=== PATIENT | male | born 1975 | race African-American/Black ===

== ENCOUNTER 2017-01-28 00:56 | Inpatient (IN) ==
[2017-01-28] MEDS ORDERED: NS 1,000 ML ONE (01:07)
--- NOTE | 2017-01-28 01:17 | PROVIDER DOCUMENTATION ---
HPI-Abdominal Pain/GI Problem - General Source: patient, EMS, language interpreter Unable to obtain history due to:: other (hearing impaired;instructional design technologist/friend at bedside) - History of Present Illness-ABD Nature of Presenting Problems: Pt is a 41 yom who presents to ER via EMS with CC of black/tarry diarrhea today and coffee ground hematemesis. Pt reports that he has felt weak/sick for the past several days, but felt increased dizzy and weak tonight. Pt went to use the bathroom when he sat on the toilet, passed stool, and passed out. Pt was discovered by his , recovered, and called EMS. EMS reports pt's B/P was 104/ 74 at midnight. Pt has hx of peptic ulcers. Abdominal Pain Onset Location: reports: epigastric Pain Radiation: reports: no radiation Quality of Pain: reports: aching, cramping Severity in ED: reports: severe Onset/Duration: reports: just prior to arrival Timing: reports: still present Activities at Onset: reports: light activity Associated Symptoms: reports: diarrhea (black/tarry), dizziness, fatigue, loss of appetite, nausea, syncope, vomiting (coffee grounds), weakness, trouble walking. denies: anxiety, arm pain, back/neck pain, chest pain, constipation, cough, diaphoresis, EENT symptoms, fever/chills, genitourinary problems, headaches, heartburn, joint pain, muscle aches, sinus congestion/drainage, shortness of breath, sensory/motor loss Last BM: this evening Dark Stools Present?: reports: black, tarry Rectal Pain: reports: other (rectal pain on exam) Emesis Description: reports: coffee grounds - General Stated Complaint: SYNCOPE, VOMITING BLOOD Time Seen by Provider: 01/28/17 00:56 Allergies/Adverse Reactions: Patient Allergies Allergy/AdvReac Type Severity Reaction Status Date / Time No Known Allergies Allergy Verified 09/10/15 08:59 Home Medications: Home Medication List Medication Instructions Recorded Confirmed Last Taken Type No Home Medications 09/10/15 09/10/15 Unknown History Review of Systems - Adult - REVIEW OF SYSTEMS - ADULT Constitutional: reports: tamara. denies: chills, fever, night sweats, weight gain, weight loss Eyes: reports: no symptoms reported Ears, Nose, Mouth & Throat: reports: no symptoms reported Cardiovascular: reports: syncope. denies: chest pain, edema, heart murmur, irregular heart rate, orthopnea, palpitations, poor circulation, PND Respiratory: reports: no symptoms reported Gastrointestinal: reports: abdominal pain, hematemesis, diarrhea, nausea, vomiting. denies: constipation, difficulty swallowing, frequent heartburn, poor appetite, rectal bleeding Genitourinary: reports: no symptoms reported Musculoskeletal: reports: no symptoms reported Integumentary: reports: no symptoms reported Neurological: reports: syncope. denies: ataxia, dizziness/vertigo, headache/ migraines, loss of balance, numbness, paresthesia, seizure, slurred speech, tremors Psychiatric: reports: no symptoms reported Endocrine: reports: no symptoms reported Hematologic/Lymphatic: reports: no symptoms reported Allergic/Immunologic: reports: no symptoms reported All Other Systems: Reviewed and Negative Past History - Adult - PAST MEDICAL HISTORY-ADULT Review of Records: reports: Nursing Assessment Review, Medications Reviewed Additional History: DEAF - IMMUNIZATION STATUS Childhood Immunizations: See Nurse Assessment Flu Vaccine: See Nurse Assessment Physical Exam-General - PHYSICAL EXAM-ADULT Initial Vital Signs Reviewed: Yes - CONSTITUTIONAL General Appearance: appears well, alert, moderate distress. negative: no apparent distress, mild distress, severe distress, cachetic, obese, thin, anxious, lethargic, slow to respond, obtunded, combative - NECK Neck: non-tender, full range of motion, supple, normal inspection. negative: C- spine tenderness, limited range of motion, lymphadenopathy - RESPIRATORY Respiratory: chest non-tender, lungs clear, normal breath sounds, no pleuratic chest pain, no respiratory distress, no accessory muscle use. negative: respiratory distress, decreased breath sounds, accessory muscle use, rales, wheezing - CARDIOVASCULAR Cardiovascular: normal peripheral pulses, regular rate, rhythm. negative: bradycardia, tachycardia, irregularly irregular - CHEST (BREASTS) Chest/Breast: no masses/lumps, no tenderness. negative: tenderness - GASTROINTESTINAL (ABDOMEN) Abdominal Exam: normal bowel sounds, soft, distended, tenderness (epigastric). negative: non tender - GENITOURINARY Rectal Exam: black stool, tenderness - MUSCULOSKELETAL Extremity: normal range of motion, non-tender, normal gait. negative: deformity , erythema, inflammation, pedal edema, slow capillary refill, swelling, tenderness - NEUROLOGIC Neurologic: grossly normal, no motor/sensory deficits. negative: focal weakness , motor weakness, sensory deficit - PSYCHIATRIC Psych/Mental Status: normal mood/affect, normal thought content, normal thought process, oriented x 3 Progress - PLAN OF CARE/RESULTS Progress/Plan/Lab Results: Vital Signs - 24 hr 01/28/17 01/28/17 01/28/17 00:57 02:06 02:09 Temperature 98.7 F Pulse Rate 104 H 75 Pulse Rate [ 86 Sitting] Pulse Rate [ 102 H Standing] Pulse Rate [ 80 Supine] Respiratory 18 16 Rate Blood Pressure 107/69 114/70 Blood Pressure 117/74 [Sitting] Blood Pressure 114/70 [Standing] Blood Pressure 111/76 [Supine] O2 Sat by Pulse 99 100 Oximetry Orders Category Date Time Status Orthostatic Vital Signs NOW Care 01/28/17 01:20 Active Saline Loc DIRECTED Care 01/28/17 01:20 Active Saline Loc DIRECTED Care 01/28/17 01:20 Active Vital Signs Order Q15M Care 01/28/17 01:[address] ABD/PELVIS W/ IV CONT ONLY [CT] Stat Exams 01/28/17 01:20 Ordered CBC WITH ELECTRONIC DIFF [HEME] Stat Lab 01/28/17 01:26 Completed COMPREHENSIVE METABOLIC PANEL [CHEM] Stat Lab 01/28/17 01:26 Received OCCULT BLOOD NON-FECES Stat Lab 01/28/17 01:20 Uncollected OCCULT BLOOD SCREENING [STOOL] Stat Lab 01/28/17 01:26 Completed PROTIME WITH INR [COAG] Stat Lab 01/28/17 01:26 Completed PTT [COAG] Stat Lab 01/28/17 01:26 Completed TYPE & SCREEN [BBK] Stat Lab 01/28/17 01:26 Received 0.9% Sodium Chloride Inj [Ns] 1,000 ml Med 01/28/17 01:07 Discontinued .ROUTE As Directed 0.9% Sodium Chloride Inj [Ns] 1,000 ml Med 01/28/17 01:21 Active IV 999 mls/hr Ondansetron [Zofran] Med 01/28/17 01:21 Discontinued 4 mg IV NOW ONE Pantoprazole [Protonix] 80 mg Med 01/28/17 01:21 Discontinued 0.9% Sodium Chloride Inj [Ns] 80 ml IV NOW EKG [EKG] Stat Ther 01/28/17 01:20 Ordered Laboratory Tests 01/28/17 01/28/17 01:26 01:26 WBC 9.58 RBC 4.21 L Hgb 9.5 L Hct 29.1 L MCV 69.1 L MCH 22.6 L MCHC 32.6 L RDW Std Deviation 15.4 H Plt Count 287 MPV 10.0 Immature Gran % (Auto) 0.2 Neut % (Auto) 75.2 Lymph % (Auto) 16.1 L [place] % (Auto) 7.8 Eos % (Auto) 0.6 Baso % (Auto) 0.1 Immature Gran # (Auto) 0.02 Neut # (Auto) 7.20 H Lymph # (Auto) 1.54 [place] # (Auto) 0.75 H Eos # (Auto) 0.06 Baso # (Auto) 0.01 PT 12.0 H INR 1.13 PTT (Actin FS) 23.8 - EKG 1 Time of EKG reading by physician:: 02:27 EKG Read and Signed by:: Prakash King EKG Interpretation (*Must complete 3 of following elements*): Normal Rate: 75 Rhythm: NSR with sinus arrhythmia - CONSULTS/PCP/HOSPITALIST Notification #1 *Consult/PCP/Hospitalist*: Dr. Looney (Hospitalist) Time Discussed: 02:08 Consult Disposition: other (Dr. Looney was made aware of pt's presence in the ER and that he has upper GI bleed, but is waiting for a consult with GI bleed.) #2 Consult: Dr. Gross (GI) Time Discussed: 02:12 Consult Disposition: other (Agreed with IV protonics; Agreed to admit pt and schedule a consult with Dr. Gross in the morning.) Departure - Departure Time of Disposition Order: 02:16 Certified Medical Emergency: Emergent - Departure DIAGNOSIS: Upper GI bleed Abdominal pain Qualifiers: Abdominal location: epigastric Qualified Code(s): R10.13 - Epigastric pain Disposition: ADMITTED INPATIENT 09 Condition: Stable Referrals: None,PCP [Primary Care Provider] - Attestation - Scribe Verification/Attestation Scribe:: Jalil Galicia Acting as Scribe for:: Prakash King Scribe documention review:: This chart was documented by a scribe and accurately reflects the service the provider performed and the decisions made by the provider. Physician Attestation
[2017-01-28] MEDS ORDERED: PROTONIX 80 MG in NS 80 ML IV ONE (01:21)
[2017-01-28] MEDS ORDERED: NS 1,000 ML IV ONE (01:21)
[2017-01-28] MEDS ORDERED: ZOFRAN IV ONE (01:21)
[2017-01-28 01:56] LABS: BASO% 0.1 % (0.0-0.8); EOS# 0.06 X1000 (0.0-0.7); EOS% 0.6 % (0.0-10.0); HEMATOCRIT 29.1 % (42.0-52.0); HEMOGLOBIN 9.5 g/dL (14.0-18.0); IMM GRAN# 0.02 X1000 (0.0-0.04); IMM GRAN% 0.2 % (0.0-0.5); LYMPH# 1.54 X1000 (1.2-3.4); LYMPH% 16.1 % (20.5-51.1); MANUAL DIFF NEEDED? NO; MCH 22.6 PG (27-31); MCHC 32.6 g/dL (33-37); MCV 69.1 FL (81-99); MONO# 0.75 X1000 (0.11-0.59); MONO% 7.8 % (1.7-9.3); NEUT% 75.2 % (42.2-75.2); PLT 287 X1000 (130-400); RBC 4.21 XMIL (4.7-6.1)
[2017-01-28 02:05] LABS: INR 1.13; PTT 23.8 Seconds (22.0-36.0)
[2017-01-28 02:20] LABS: AGAP 11; ALBUMIN 3.3 g/dL (3.5-5.0); ALKALINE PHOSPHATASE 60 U/L (32-122); BUN 33 mg/dL (8-22); CALCIUM 8.5 mg/dL (8.8-10.2); CHLORIDE 107 mmol/L (98-107); COSMO 290; GOT 13 U/L (10-34); GPT 13 U/L (10-44); SODIUM 142 mmol/L (136-145); TCO2 24 mmol/L (25-35); TOTAL BILIRUBIN 0.45 mg/dL (0.20-1.00)
[2017-01-28] MEDS ORDERED: SODIUM CHLORIDE 0.9% INJ SCH (05:04)
[2017-01-28] MEDS ORDERED: PROTONIX IV SCH (05:04)
[2017-01-28] MEDS: PROTONIX 80 MG in NS 80 ML IV SCH ×2 (05:46→14:57)
[2017-01-28] MEDS: NS 1,000 ML IV SCH ×3 (05:52→19:44)
--- NOTE | 2017-01-28 09:32 | HISTORY AND PHYSICAL ---
CHIEF COMPLAINT: Epigastric pain and dark stools. HISTORY OF PRESENTING ILLNESS: A 41-year-old, deaf male, who presented to the emergency department with complaint of epigastric pain and dark stools for the past several days. The patient states that he was feeling weak and he was having some cramping sensation in his abdomen. He was evaluated in ER. As per ER physician, he was Hemoccult positive and, due to his presenting symptoms, it was thought that he would need hospitalization. At the time of my examination, he denied having any headache, fever, chills, chest pain, or shortness of breath. The patient's history was translated through sign language. PAST MEDICAL HISTORY: None. PAST SURGICAL HISTORY: None. ALLERGIES: No known drug allergies. CURRENT MEDICATIONS: None. SOCIAL HISTORY: Twenty pack years history of smoking. No history of alcohol or illicit drug use. FAMILY HISTORY: No history of coronary disease. REVIEW OF SYSTEMS: Twelve-point review of systems is as in HPI. Other systems negative. PHYSICAL EXAMINATION: GENERAL: Cooperative, friendly male. He is resting comfortably now. VITAL SIGNS: Temperature 98.7 degrees, pulse 104, respiration 18, blood pressure 107/69. HEENT: Atraumatic, normocephalic. Extraocular movements intact. PERRLA. NECK: Supple. CHEST: Clear to auscultation. CARDIOVASCULAR: Regular rate and rhythm. ABDOMEN: Soft. Positive bowel sounds. EXTREMITIES: No edema. NEURO: He is awake, alert, oriented x3. : No bladder distention. SKIN: Warm. LABORATORIES AND STUDIES: WBCs 9.58, hemoglobin 9.5, hematocrit 29.1, platelets 287,000. Sodium 142, potassium 4.0, chloride 107, CO2 is 24, BUN is 33, creatinine is 1.1, glucose is 100. ASSESSMENT: A 41-year-old deaf male who presented to the emergency department with several days history of having epigastric pain and dark tarry stools. He will need hospitalization for further management. 1. Epigastric pain. 2. Suspected upper gastrointestinal bleed. 3. Ongoing tobacco abuse. PLAN: 1. We will admit the patient to medical floor. 2. We will keep patient n.p.o. 3. Start patient on a PPI. 4. We will consult Gastroenterology. 5. I counseled patient on smoking cessation. 6. Put patient on DVT prophylaxis with SCDs. 7. We will continue to follow and reassess.
--- NOTE | 2017-01-28 10:14 | Diag Imaging Result Document ---
PROCEDURE NAME: CT ABD/PELVIS W/ IV CONT ONLY - 01/28/2017 CT ABDOMEN AND PELVIS WITH IV CONTRAST: COMPARISON: None available. FINDINGS: The stomach is mildly distended and it contains heterogeneous material filling the gastric lumen. It is nonspecific and could simply represent foodstuffs. Since this is a venous phase study, the presence of active arterial extravasation in the lumen of the stomach cannot be assessed. No well-defined gastric mass can be identified. There are a few borderline to mildly prominent lymph nodes along the lesser curvature of the stomach, with the largest measuring up to 1.5 x 1.1 cm. These are nonspecific. There is no evidence of bowel obstruction. No free abdominal gas or free fluid is identified. No focal inflammatory changes are identified. The appendix is normal. The gallbladder is unremarkable. The kidneys are unremarkable. The remainder of the solid viscera of the abdomen and pelvis and the remainder of the GI tract is essentially unremarkable. IMPRESSION: 1. Mildly distended stomach containing a fairly large amount of heterogeneous material. Active arterial extravasation cannot be assessed, as there is no arterial phase on this study. The heterogenous material is indeterminate and could represent foodstuffs or perhaps blood. Correlate clinically for evidence of gastritis. 2. Borderline to mildly prominent lymph nodes along the lesser curvature of the stomach that are nonspecific. [facility]
[2017-01-28] MEDS ORDERED: FLUZONE QUAD 2016-2017 SYRINGE IM ONE (14:56)
[2017-01-29] MEDS ORDERED: TYLENOL PO ONE (00:26)
[2017-01-29] MEDS: PROTONIX 80 MG in NS 80 ML IV SCH ×4 (00:34→23:16)
[2017-01-29] MEDS: NS 1,000 ML IV SCH ×3 (04:01→23:17)
[2017-01-29 05:40] LABS: HEMATOCRIT 22.6 % (42.0-52.0); HEMOGLOBIN 7.3 g/dL (14.0-18.0); MCH 22.7 PG (27-31); MCHC 32.3 g/dL (33-37); MCV 70.2 FL (81-99); MPV 10.5 FL (7.4-10.4); RBC 3.22 XMIL (4.7-6.1)
[2017-01-29 06:05] LABS: AGAP 10; BUN 19 mg/dL (8-22); CALCIUM 8.2 mg/dL (8.8-10.2); CHLORIDE 110 mmol/L (98-107); COSMO 287; SODIUM 143 mmol/L (136-145); TCO2 23 mmol/L (25-35)
[2017-01-29] MEDS ORDERED: TYLENOL PO PRN (12:22)
[2017-01-29] MEDS ORDERED: NS 500 ML IV ONE (15:14)
--- NOTE | 2017-01-29 18:16 | PROGRESS NOTE ---
DATE: 01/29/2017 SUBJECTIVE: Patient complaining of mild pain and epigastric pain. Patient is completely deaf, so he communicates with signals. OBJECTIVE: Vital Signs: Temperature 97.6 degrees, heart rate 70, respiratory rate 20, blood pressure 118/68, O2 100% on room air. General Examination: This is a 41-year-old deaf male lying in bed, in no acute distress. HEENT: Head is normocephalic, atraumatic. Anicteric sclerae and pale conjunctivae. Mucous membranes moist. Neck: Supple. No JVD. No carotid bruits. No lymphadenopathy. No thyromegaly. Cardiovascular: S1, S2 heard. No murmurs, gallops, or rubs. Regular rate and rhythm. Respiratory: Clear bilaterally to auscultation. No work of breathing or using accessory muscles. Abdomen: Soft, nontender to palpation. Bowel sounds present. No organomegaly. Extremities: No clubbing, cyanosis, or edema. Peripheral pulses present in both legs. Neurological: Patient alert oriented x3. Able to move 4 extremities. Cranial nerves II x XII are grossly normal. LABORATORY DATA: White cell count 6.9, hemoglobin 7.3, hematocrit 22.6, platelets 249,000. BMP unremarkable. ASSESSMENT AND PLAN: 1. Gastrointestinal bleeding. 2. Epigastric pain. 3. Tobacco abuse. PLAN: Patient admitted to the hospital for coffee ground vomiting and today the hemoglobin has dropped to 7.6 and also there was increasing blood urea nitrogen from yesterday, so I think this patient is bleeding or was bleeding, so in this case, we are still waiting for Gastroenterology evaluation. Probably he is going to be scoped tomorrow and the patient is going to be given 2 units of blood. We will check labs tomorrow.
[2017-01-29] MEDS: CARAFATE LIQUID PO SCH (21:29)
[2017-01-29] MEDS: ICAR-C PO SCH (21:29)
[2017-01-29] MEDS: CENTRUM SILVER PO SCH (21:29)
[2017-01-30] MEDS: CARAFATE LIQUID PO SCH ×4 (02:28→20:53)
[2017-01-30] MEDS: NS 1,000 ML IV SCH ×2 (03:01→13:16)
[2017-01-30] MEDS ORDERED: MYLICON DROPS (DOSE) MISC ONE (09:25)
[2017-01-30] MEDS ORDERED: DIPRIVAN 1% ONE (10:00)
[2017-01-30] MEDS ORDERED: VERSED ONE (10:00)
[2017-01-30] MEDS ORDERED: EXTENSION SET 32 IN 4522 ONE (10:43)
[2017-01-30] MEDS ORDERED: LR 1,000 ML ONE (10:43)
[2017-01-30] MEDS ORDERED: XYLOCAINE-MPF 2% ONE (10:43)
[2017-01-30] MEDS ORDERED: ANESTHESIA PB SET 88 IN 5742 ONE (10:43)
[2017-01-30] MEDS: CENTRUM SILVER PO SCH ×2 (11:12→20:53)
[2017-01-30] MEDS: ICAR-C PO SCH ×2 (11:12→20:53)
--- NOTE | 2017-01-30 11:37 | CONSULTATION ---
DATE OF CONSULTATION: 01/29/2017 REASON FOR CONSULT: Anemia, GI bleed, epigastric pain and dark stools. HISTORY: Mr. Rhodes is 41-year-old male who is completely data. He presented to the hospital on 01/28/2017 with symptoms of worsening abdominal pain in epigastrium along with having melena for the last few days. He was feeling weak for last few days and he fell at home because of weakness and vomited coffee colored stuff per the patient's . The patient has prior history of peptic ulcer disease but he does not recall the findings of the previous workup. The patient denies any history of NSAIDs. When being in the hospital his hematocrit gone down from 29 to 22 and he is fixing to receive 2 units blood transfusion. He has a 20 pack year history of smoking. No history of alcohol, illicit drug abuse. PAST MEDICAL HISTORY: Questionable history of tobacco use in the past, chronic tobacco abuse. PAST SURGERY HISTORY: None. ALLERGIES: No known drug allergies. CURRENT MEDICATIONS AT HOME: None. SOCIAL HISTORY: Twenty pack history of smoking. No history alcohol, illicit drug abuse. FAMILY HISTORY: Noncontributory. REVIEW OF SYSTEMS: No fever, rigors or chills, chest pain or shortness of breath. No new genitourinary complaints. He did have a fall at home likely presyncopal event but he is feeling better now. MEDICATIONS IN THE HOSPITAL: Include Tylenol 650 mg every 4 hours, IV fluids 100 mL/hour, Protonix drip at 10 mL/h. He is currently liquid diet. PHYSICAL EXAM: Vitals: Temperature 98.1, pulse of 77, respiratory 16, blood pressure 115/69, saturating 100% room air, body weight of 218 pounds 4.8 ounces, BMI 28.8 kg. General Appearance: Moderately built nourished lying in bed in no acute. HEENT: Pale, no icterus. Pupils equal, react to light. Neck: Supple. Chest: Clear. Cardiac: Regular rhythm. No murmur. Abdomen: Mild discomfort epigastric, no rebound, no guarding. Bowel sounds present. Extremities: No cyanosis, clubbing, edema. Neurologic: Alert, awake, oriented x3. He is completely deaf so most history obtained by writing on the board alongside with help from and friends. LABS: Hemoglobin and hematocrit 7.3, 22.6, white count of 6.9, platelet count of 249,000. INR 1.13. Sodium 140, potassium 4, chloride 110, bicarb 22, anion gap 10, BUN of 19, creatinine 1, glucose of 101, calcium 8.2, AST 13, ALT 13, alkaline phosphatase 6, total protein 6, albumin of 3.3. IMPRESSION PLAN: 1. Epigastric pain. 2. Melena. 3. Coffee ground emesis. 4. Presyncope. 5. Severe anemia currently fixing to get 2 units blood transfusion. RECOMMENDATIONS: 1. Will keep the patient Protonix drip, will start on Carafate 1 g 6 hours. Will keep a close eye on patient hemoglobin and hematocrit transfuse to keep hematocrit more than 27%. The patient is recommend to avoid smoking in future. Patient also recommend to avoid NSAIDs. The patient will follow gastroesophageal reflux life changes. Avoid excessive tea, coffee, soda, tomatoes, onions, spicy foods. 2. Patient schedule EGD tomorrow morning. The risks, benefits, indications, alternatives explained the patient and family and all questions answered.
[2017-01-30] MEDS: PROTONIX 80 MG in NS 80 ML IV SCH (13:16)
[2017-01-30 13:55] LABS: BASO% 0.3 % (0.0-0.8); EOS# 0.11 X1000 (0.0-0.7); EOS% 1.7 % (0.0-10.0); HEMATOCRIT 27.3 % (42.0-52.0); HEMOGLOBIN 8.8 g/dL (14.0-18.0); LYMPH# 2.15 X1000 (1.2-3.4); LYMPH% 32.6 % (20.5-51.1); MANUAL DIFF NEEDED? NO; MCH 23.3 PG (27-31); MCHC 32.2 g/dL (33-37); MCV 72.2 FL (81-99); MONO# 0.26 X1000 (0.11-0.59); MONO% 3.9 % (1.7-9.3); MPV 10.4 FL (7.4-10.4); NEUT% 61.5 % (42.2-75.2); PLT 256 X1000 (130-400); RBC 3.78 XMIL (4.7-6.1)
--- NOTE | 2017-01-30 15:35 | PROGRESS NOTE ---
DATE: 01/30/2017 SUBJECTIVE: The patient reports feeling better. No abdominal pain. Patient is deaf so he communicates by reading what we write on the paper. OBJECTIVE: Vital Signs: Temperature 98.0 degrees, heart rate 81, respiratory rate 18, blood pressure 118/65, O2 saturation 100% on room air. General Appearance: This is a 41-year-old male, lying in bed, in no acute distress. Deaf. HEENT: Head is normocephalic, atraumatic. Anicteric sclerae and pale conjunctivae. Mucous membranes moist. Neck: Supple. No jugular venous distention noted. No carotid bruits. No lymphadenopathy. No thyromegaly. Cardiovascular Examination: S1, S2 heard. No murmurs, gallops, or rubs. Regular rate and rhythm. Respiratory Examination: Clear bilaterally to auscultation. No work of breathing or using accessory muscles. Abdomen: Soft, nontender to palpation. Bowel sounds present. No organomegaly. Extremities: No clubbing, cyanosis, or edema. Peripheral pulses present in both legs. Neurological Examination: Patient moves 4 extremities. Follow commands. LABORATORY DATA: Still pending. ASSESSMENT AND PLAN: 1. Gastrointestinal bleed secondary to duodenal ulcer. 2. Epigastric pain. 3. Tobacco abuse. PLAN: The patient underwent upper endoscopy as per Dr. Bauer. They found a big gastric ulcer near to the lesser curvature. At this point, the patient is on Protonix drip, Carafate, and I-Car C. We will continue with the same management. If hemoglobin is stable so far tomorrow, the patient is cleared to go from GI perspective. Dr. Bauer recommends to have a followup one month from now. By now, blood pressure is okay any the results of CBC is still pending at the time of dictation. We will continue basically with the same management.
[2017-01-30 17:47] LABS: BASO% 0.3 % (0.0-0.8); EOS# 0.11 X1000 (0.0-0.7); EOS% 1.6 % (0.0-10.0); HEMATOCRIT 26.5 % (42.0-52.0); HEMOGLOBIN 8.6 g/dL (14.0-18.0); LYMPH# 2.31 X1000 (1.2-3.4); LYMPH% 32.7 % (20.5-51.1); MANUAL DIFF NEEDED? NO; MCH 23.4 PG (27-31); MCHC 32.5 g/dL (33-37); MONO# 0.32 X1000 (0.11-0.59); MONO% 4.5 % (1.7-9.3); MPV 10.2 FL (7.4-10.4); NEUT% 60.9 % (42.2-75.2); PLT 257 X1000 (130-400); RBC 3.68 XMIL (4.7-6.1)
[2017-01-30 23:36] LABS: BASO% 0.3 % (0.0-0.8); EOS# 0.12 X1000 (0.0-0.7); EOS% 1.6 % (0.0-10.0); HEMATOCRIT 25.4 % (42.0-52.0); HEMOGLOBIN 8.2 g/dL (14.0-18.0); LYMPH# 2.35 X1000 (1.2-3.4); LYMPH% 30.6 % (20.5-51.1); MANUAL DIFF NEEDED? NO; MCH 23.3 PG (27-31); MCHC 32.3 g/dL (33-37); MCV 72.2 FL (81-99); MONO# 0.43 X1000 (0.11-0.59); MONO% 5.6 % (1.7-9.3); MPV 10.1 FL (7.4-10.4); NEUT% 61.9 % (42.2-75.2); PLT 254 X1000 (130-400); RBC 3.52 XMIL (4.7-6.1)
[2017-01-31] MEDS ORDERED: NS 500 ML IV ONE (01:00)
[2017-01-31] MEDS: CARAFATE LIQUID PO SCH ×3 (01:49→14:28)
[2017-01-31] MEDS: PROTONIX 80 MG in NS 80 ML IV SCH ×2 (03:17→05:15)
[2017-01-31] MEDS: NS 1,000 ML IV SCH (03:18)
[2017-01-31 07:43] VITALS: BP 110/60
[2017-01-31 09:48] LABS: BASO% 0.3 % (0.0-0.8); EOS% 1.3 % (0.0-10.0); HEMATOCRIT 31.1 % (42.0-52.0); HEMOGLOBIN 10.3 g/dL (14.0-18.0); LYMPH# 2.24 X1000 (1.2-3.4); LYMPH% 28.7 % (20.5-51.1); MANUAL DIFF NEEDED? YES; MCH 24.7 PG (27-31); MCHC 33.1 g/dL (33-37); MCV 74.6 FL (81-99); MONO# 0.45 X1000 (0.11-0.59); MONO% 5.8 % (1.7-9.3); MPV 10.6 FL (7.4-10.4); NEUT% 63.9 % (42.2-75.2); PLT 250 X1000 (130-400); RBC 4.17 XMIL (4.7-6.1)
--- NOTE | 2017-01-31 09:54 | OPERATIVE NOTE ---
PROCEDURE DATE: 01/30/2017 REQUESTING PHYSICIAN: Sp Zuniga MD PROCEDURE: Esophagogastroduodenoscopy with biopsy of the gastric ulcer. PREOPERATIVE DIAGNOSES: 1. Melena. 2. Anemia, hematocrit 22, required 2 units of blood transfusion. 3. History of coffee-grounds emesis. 4. History of deafness, severe and unable to speak, understands sign language. POSTOPERATIVE DIAGNOSES: 1. Normal esophagus. 2. Z-line was at 40 cm. 3. Evidence of a large gastric ulcer in gastric antrum measuring about 2 cm or more. This was biopsied from the edge. 4. Normal fundus and cardia on retroflexion. 5. Gastritis in the body and antrum. 6. Duodenitis in the bulb. 7. Normal 2nd portion duodenum. ESTIMATED BLOOD LOSS: Minimal. COMPLICATIONS: None. ANESTHESIA: Monitored anesthesia care. SPECIMENS: Gastric ulcer biopsy of the edge, small piece was taken. DESCRIPTION OF PROCEDURE: After informed consent, the patient and family explained the risks, benefits, indications, alternatives to the procedure. The patient was prepared for EGD. The patient was brought to the OR, turned in the left lateral position a bite block was placed. After adequate monitored anesthesia care, the upper scope was gently introduced to the oral vestibule and advanced all the way to the second portion of the duodenum. Esophagus was normal. The Z-line was at 42 cm. he scope was into the stomach showed evidence of a large ulcer in the gastric antrum measuring about 2 cm or more. The ulcer was clean base although the edges were erythematous, this was biopsied. A small piece taken. Retroflexion otherwise revealed normal fundus and cardia. The stomach, body, and incisure revealed erythema and erosions in the body suggesting gastritis. The duodenal bulb showed evidence of erosions and erythema suggesting duodenitis. The 2nd portion of duodenum appeared normal. The patient tolerated the procedure well, is currently monitored in the OR in stable condition. I discussed the findings with the patient's and all questions were answered. RECOMMENDATIONS: 1. The patient is to continue on Prilosec twice daily 40 mg for 3 months. 2. The patient will be on Carafate 1 g 6 hours for 6 weeks. 3. The patient will be on Iron-C 1 capsule b.i.d. for 3 months. 4. The patient will be on Centrum Silver 1 capsule p.o. b.i.d. for 3 months. 5. The patient will be on full liquid diet for now and advanced in 3 days to a soft diet. 6. The patient will need a repeat EGD in 3 months after discharge to evaluate healing of the ulcer. 7. The patient will follow gastroesophageal reflux life changes. Avoid excessive tea, coffee, soda, tomatoes, onions, spicy foods. The patient also try to avoid any NSAIDs. 8. Further recommendations pending hospital course.
[2017-01-31 10:03] LABS: LYMPHS 32 % (21-51); MONO 2 % (1-9)
[2017-01-31] MEDS: ICAR-C PO SCH (10:11)
[2017-01-31] MEDS: CENTRUM SILVER PO SCH (10:12)
[2017-01-31] MEDS ORDERED: PRILOSEC PO SCH (21:00)
--- NOTE | 2017-02-01 09:02 | DISCHARGE SUMMARY ---
ADMISSION DATE: 01/28/2017 DISCHARGE DATE: 01/31/2017 CONSULTATIONS: Dr. Bauer with gastroenterology. PERTINENT PROCEDURES: 1. EGD with biopsy of gastric ulcer, performed by Dr. Bauer. 2. Abdominal and pelvis CT showed mildly distended stomach containing a fairly large amount of heterogenous material. Active arterial extravasation could not be assessed. There is no arterial phase on the study. Borderline to mildly prominent lymph nodes along the lesser curvature of the stomach that are nonspecific. DISCHARGE DIAGNOSIS: 1. GI bleed secondary to a duodenal ulcer. 2. Epigastric pain. 3. Tobacco abuse. Patient was advised against smoking cessation as well as the means to quit. HOSPITAL COURSE: Briefly, Mr. Rhodes is a 41-year-old male who is also deaf, presented to the emergency room with complaint of epigastric pain and dark stools for the past several days. The patient was feeling weak and he was having some cramping sensation in his abdomen. He was evaluated in the ED. He was found to have a Hemoccult positive stool. Patient was admitted. He was made NPO. He was started on a PPI, as well as a consultation with GI, as well as smoking cessation education. Patient did undergo an EGD with biopsy of a gastric ulcer with Dr. Bauer. Patient will continue on Prilosec twice daily at 40 mg for 3 months and Carafate 1 g q.6 hours for 6 weeks, Icar C b.i.d. for 3 months, as well as Centrum Silver p.o. b.i.d. for 3 months. He was placed on a full liquid diet and advanced in 3 days to a soft diet. The patient will need to follow up with Dr. Bauer in 3 months for an EGD repeat to evaluate the healing of his ulcer. He will need to follow GERD lifestyle changes, avoid excess tea, coffee, soda, tomatoes, onions, spicy foods. He will also need to avoid any NSAIDs. Dr. Meyers has assessed the patient and feels that he is appropriate for discharge today. VITAL SIGNS: At time of discharge, temperature is 97.8 degrees, heart rate 56, respirations 14, blood pressure 110/60, O2 is 100% on room air. LABS: Patient's hemoglobin and hematocrit were also monitored. On admission he was 7 and 22. On the day of discharge he was 10 and 31. DISCHARGE MEDICATIONS: 1. Carafate 1 g p.o. q.6 hours for 3 months. 2. Centrum Silver 1 each p.o. b.i.d. 3. Icar-C 1 each p.o. daily b.i.d. 4. Prilosec 40 mg p.o. b.i.d. FOLLOWUP: Patient is being discharged home. He will need to obtain a primary care physician from the list provided to him and he will also need to follow up with Dr. Bauer in 1 month and then again in 3 months for a repeat EGD to assess the healing of his gastric ulcer. Again, patient will need to follow GERD lifestyle changes, avoiding excessive tea, coffee, soda, tomatoes, onions, and spicy foods, and also the avoidance of NSAIDs, as well as smoking cessation. Patient can return to the ED for any worsening of symptoms. DISCHARGE TIME: 30 minutes. Dictated by DUNIA Browning for Rehan Smith MD
== END 2017-01-31 16:15 | disposition home or self-care (01) ==
LOC: EDBD → ED 00:56 → EDIPHOLD 05:26 → 3N 14:20
PROVIDERS: ATTEND Internal Medicine